=== PATIENT | female | born 1955 | race Caucasian/White ===

== ENCOUNTER 2018-12-12 09:44 | Day surgery (SDC) | payer BC ==
[~2018-12-12 09:44] MED LIST: Lactated Ringers 1,000 ML IV ONE; Lactated Ringers 1,000 ML IV SCH
[2018-12-12 10:38] LABS: ANION GAP 12.9 MEQ/L (5-15); Creatinine 1 1.15 mg/dL (0.52-1.04); Potassium 4.5 mmol/L (3.5-5.1)
[2018-12-12] MEDS ORDERED: Ketamine HCl 50 MG/ML ONE (13:02)
[2018-12-12] MEDS ORDERED: DIPRIVAN 200 MG/20 ML IV ONE ×2 (13:02→13:34)
[2018-12-12] MEDS ORDERED: SUBLIMAZE 100 MCG/2 ML ONE (13:42)
[2018-12-12 15:20] VITALS: O2SAT 99
[2018-12-12 15:27] VITALS: BP 124/72; PULSE 64
--- NOTE | 2018-12-12 15:43 | OP ---
PROCEDURE DATE/TIME: 12/12/2018 1311 PREOPERATIVE DIAGNOSES: Diarrhea, abdominal pain, reflux disease. POSTOPERATIVE DIAGNOSES: 1) Mild gastritis. 2) Small 2 cm hiatal hernia. 3) Early Schatzki's ring formation with gastroesophageal reflux disease. 4) Trace diverticulosis. PROCEDURES: 1) EGD with biopsies. 2) Colonoscopy to cecum. PROCEDURE PERFORMED BY: Rosie Fonseca M.D. ANESTHESIA: MAC. ESTIMATED BLOOD LOSS: Minimal. COMPLICATIONS: None. SPECIMENS: 1) Antral biopsy. 2) Distal esophagus biopsy. 3) Stool for Clostridium difficile, stool for ova and parasite, stool culture. HISTORY: This is a patient who presents with diarrhea, abdominal pain, reflux disease. Risks, benefits, alternatives to the procedure were discussed with the patient, H&P and consent reviewed and confirmed with her. DESCRIPTION OF PROCEDURE: She was brought back to the endoscopy suite. Laid in the left lateral decubitus position. A complete time out performed. The scope gently introduced into the mouth, oropharynx and down into the esophagus, stomach, duodenum. The esophagus had a small 2 cm hiatal hernia. There was an early Schatzki's ring forming. There is no narrowing here but there does appear to be some reflux esophagitis with some inflammation most significantly laterally. In the stomach there is mild gastritis throughout the stomach. Duodenum looked normal. I took an antral biopsy to rule out Helicobacter pylori, this site was hemostatic. On retroflex view we revisualized the 2 cm hiatal hernia. We then carefully withdrew the scope to the distal esophagus. Biopsied the lateral aspect where there was the most significant inflammation and sent this to pathology. All sites hemostatic. Scope carefully removed. Patient tolerated the procedure well. No other findings. We then repositioned her for colonoscopy. First, we did a rectal exam and this was normal. Scope was then inserted and gently advanced to the cecum. Overall the colon looked very healthy. There was some trace diverticulosis in the sigmoid colon but everything else looked excellent, very nice healthy mucosa. There was some liquid stool that we irrigated and suctioned but overall really looked quite good and no significant issues. The patient has been having some diarrhea. I did take stool samples for ova and parasite, stool for Clostridium difficile and stool culture and these were sent. The scope was then completely withdrawn. The patient tolerated the procedure well. Tentative plan for EGD PRN and colon in ten years. She is going to need to be on proton pump inhibitor therapy and she is going to follow up with me to discuss her gallbladder study as well.
[2018-12-12 16:20] LABS: 027 TOX PROD PRESUMPTIVE NEGATIVE (NEGATIVE); TOXIGENIC C. DIFF ORG NEGATIVE (NEGATIVE)
[2018-12-13 13:27] LABS: Source: Feces
[2018-12-13 14:27] LABS: Giardia Antigen EIA Negative (Negative)
== END 2018-12-12 15:15 | disposition home or self-care (01) ==
LOC: SDC 09:44
PROVIDERS: ATTEND Surgery
DX: K29.70 Gastritis, unspecified, without bleeding (principal); K44.9 Diaphragmatic hernia without obstruction or gangrene; K22.2 Esophageal obstruction; K57.30 Diverticulosis of large intestine without perforation or abscess without bleeding; R19.7 Diarrhea, unspecified
CPT/HCPCS: 36415; 80048; 87045; 87046; 87177; 87209; 87335; 87493; J2704; J3010